=== PATIENT | male | born 1955 | race Caucasian/White ===

== ENCOUNTER 2016-08-01 10:34 | Emergency (ER) | payer BC ==
[2016-08-01 10:59] VITALS: BP 123/81
--- NOTE | 2016-08-01 11:16 | UC ---
Respiratory Complaint HPI - HPI Summary HPI Summary: 61 yo male with <48 hours of f/c, myalgias,runny nose and cough no cp or sob hx throat CA - History of Current Complaint Chief Complaint: UCGeneralIllness Stated Complaint: SINUS,ACHY,FEVER Time Seen by Provider: 08/01/16 11:03 Hx Obtained From: Patient Onset/Duration: Sudden Onset, Lasting Days Timing: Constant Severity Initially: Moderate Severity Currently: Moderate Pain Intensity: 6 Pain Scale Used: 0-10 Numeric Character: Cough: Nonproductive Aggravating Factors: Nothing Alleviating Factors: Nothing Associated Signs And Symptoms: Positive: Fever, Chills, Nasal Congestion Related History: Similar Episode/Dx as: - flu - Allergies/Home Medications Allergies/Adverse Reactions: Allergies Allergy/AdvReac Type Severity Reaction Status Date / Time No Known Allergies Allergy Verified 08/01/16 10:41 Home Medications: Home Medications Hydrochlorothiazide TAB* [Hydrodiuril TAB*] 12.5 mg PO DAILY 08/01/16 [History Confirmed 08/01/16] Metoprolol Tartrate TAB* [Lopressor TAB*] 50 mg PO DAILY 08/01/16 [History Confirmed 08/01/16] [id number] W/ APAP [Tylenol Cold & Flu Severe] 1 tab PO DAILY 08/01/16 [History Confirmed 08/01/16] PMH/Surg Hx/FS Hx/Imm Hx Previously Healthy: Yes Cardiovascular History Of: Reports: Hypertension - Surgical History Surgical History: Yes Surgery Procedure, Year, and Place: right knee sugery 09/28, right shoulder surgery - disclocation - 1982. GANGLION CYST REMOVED FROM [facility] 1960 - Family History Known Family History: Positive: Hypertension - Social History Alcohol Use: None Substance Use Type: None Smoking Status (MU): Never Smoked Tobacco - Immunization History Most Recent Influenza Vaccination: not this season Review of Systems Constitutional: Fever, Chills, Fatigue Skin: Negative Eyes: Negative ENT: Nasal Discharge Respiratory: Cough Cardiovascular: Negative Gastrointestinal: Negative Genitourinary: Negative Motor: Negative Neurovascular: Negative Musculoskeletal: Myalgia Neurological: Headache Psychological: Negative All Other Systems Reviewed And Are Negative: Yes Physical Exam Triage Information Reviewed: Yes Appearance: Well-Appearing, No Pain Distress, Well-Nourished Vital Signs: Initial Vital Signs Temp 99.0 F 08/01/16 10:37 Pulse 83 08/01/16 10:37 Resp 16 08/01/16 10:37 BP 123/81 08/01/16 10:37 Pulse Ox 100 08/01/16 10:37 Vital Signs Reviewed: Yes Eye Exam: Normal Eyes: Positive: Conjunctiva Clear ENT: Positive: Hearing grossly normal, Pharyngeal erythema, Nasal congestion, Nasal drainage, TMs normal. Negative: Tonsillar swelling, Tonsillar exudate, Trismus, Muffled/hoarse voice Neck exam: Normal Respiratory: Positive: Lungs clear, Normal breath sounds, No respiratory distress, No accessory muscle use Cardiovascular: Positive: RRR, No Murmur Abdomen Description: Positive: Nontender. Negative: CVA Tenderness (R), CVA Tenderness (L) Musculoskeletal: Positive: ROM Intact, No Edema Neurological: Positive: Alert Psychological Exam: Normal Skin Exam: Normal UC Diagnostic Evaluation - Laboratory O2 Sat by Pulse Oximetry: 100 - normal/not hypoxic Respiratory Course/Dx - Differential Dx/Diagnosis Provider Diagnoses: inluenza or influenza like illness Discharge - Discharge Plan Condition: Stable Disposition: HOME Prescriptions: Oseltamivir CAP* [Tamiflu CAP*] 75 mg PO BID #10 cap Patient Education Materials: Influenza (ED) Referrals: Ganesh Guzman MD [Primary Care Provider] - 4 Days Additional Instructions: rest fluids tylenol or advil recheck for new or worsening symptoms
== END 2016-08-01 11:19 | disposition home or self-care (01) ==
LOC: UCCORT 10:34
DX: J11.1 Influenza due to unidentified influenza virus with other respiratory manifestations (principal); I10 Essential (primary) hypertension
CPT/HCPCS: 99202; G0463

== ENCOUNTER 2016-12-25 11:07 | Emergency (ER) | payer BC ==
[2016-12-25 11:43] VITALS: BP 125/70
--- NOTE | 2016-12-25 13:03 | UC ---
Skin Complaint HPI - HPI Summary HPI Summary: "has been camping and found a tick on the base of his penis this morning. the area is red. " per meter maker. He was able to remove the tic w/o any problem. It was on for < 1 day. Denies fevers, chills and arthralgias and body aches - History of Current Complaint Chief Complaint: UCSkin Time Seen by Provider: 12/25/16 12:59 Stated Complaint: TICK BITE - Allergy/Home Medications Allergies/Adverse Reactions: Allergies Allergy/AdvReac Type Severity Reaction Status Date / Time No Known Allergies Allergy Verified 12/25/16 11:44 Review of Systems Constitutional: Negative Skin: Rash - does not look like bull's eye, small red area. Eyes: Negative ENT: Negative Respiratory: Negative Cardiovascular: Negative Gastrointestinal: Negative Genitourinary: Negative Motor: Negative Neurovascular: Negative Musculoskeletal: Negative Neurological: Negative Psychological: Negative All Other Systems Reviewed And Are Negative: Yes PMH/Surg Hx/FS Hx/Imm Hx Previously Healthy: Yes Cardiovascular History: Hypertension - Surgical History Surgical History: Yes Surgery Procedure, Year, and Place: right knee sugery 09/28,. right shoulder surgery - disclocation - 1982. GANGLION CYST REMOVED FROM [facility] 1960 - Family History Known Family History: Positive: Cardiac Disease, Hypertension, Diabetes - Social History Alcohol Use: None Substance Use Type: None Smoking Status (MU): Never Smoked Tobacco - Immunization History Most Recent Influenza Vaccination: not this season Physical Exam Triage Information Reviewed: Yes Appearance: Well-Appearing, No Pain Distress, Well-Nourished - very pleasant Vital Signs: Initial Vital Signs Temp 98.3 F 12/25/16 11:40 Pulse 65 12/25/16 11:40 Resp 14 12/25/16 11:40 BP 125/70 12/25/16 11:40 Pulse Ox 97 12/25/16 11:40 Eye Exam: Normal ENT Exam: Normal ENT: Positive: Pharynx normal Neck exam: Normal Neck: Positive: Supple, Nontender, No Lymphadenopathy Respiratory: Positive: Lungs clear, Normal breath sounds, No respiratory distress, No accessory muscle use Cardiovascular Exam: Normal Cardiovascular: Positive: RRR, No Murmur, Pulses Normal, Brisk Capillary Refill Musculoskeletal Exam: Normal Neurological Exam: Normal Psychological Exam: Normal Skin: Positive: rashes - right proximal penis with 2-3 mm area of erythema with centraol opening. no sign of tic remaining. Course/Dx - Course Course Of Treatment: Tic bite < 1 day. treat with prophylactic dose of doxy 200mgs x 1 dose. Pt is very agreeable with this plan. - Differential Diagnoses - Skin Complaint Differential Diagnoses: Cellulitis, Contact Dermatitis, Other - tic bite - Diagnoses Provider Diagnoses: tic bite Discharge - Discharge Plan Condition: Stable Disposition: HOME Prescriptions: Doxycycline (Monohydrate) [Doxycycline Monohydrate] 200 mg PO ONCE #2 cap Patient Education Materials: Tick Bite (ED) Referrals: Ganesh Guzman MD [Primary Care Provider] - 3 Days Additional Instructions: Please make sure to nitify your provider with any fevers, chills or joint aches.
== END 2016-12-25 13:17 | disposition home or self-care (01) ==
LOC: UCCORT 11:07
DX: S30.862A Insect bite (nonvenomous) of penis, initial encounter (principal); W57.XXXA Bitten or stung by nonvenomous insect and other nonvenomous arthropods, initial encounter; Y92.9 Unspecified place or not applicable; I10 Essential (primary) hypertension
CPT/HCPCS: 99212; G0463

== ENCOUNTER 2018-07-18 12:59 | Emergency (ER) | payer BC ==
[2018-07-18 13:20] VITALS: BP 157/88
--- NOTE | 2018-07-18 13:28 | UC ---
UC General HPI - HPI Summary HPI Summary: 4 DAY HX BODYACHES WITH COUGH RUNNY NOSE HEADACHE AND LEFT EAR PAIN. + FATIGUE. + F/C. - History of Current Complaint Chief Complaint: UCRespiratory Stated Complaint: FEVER, BODY ACHES, EARS Time Seen by Provider: 07/18/18 13:21 Hx Obtained From: Patient Pain Intensity: 7 Associated Signs & Symptoms: Negative: Chest Pain, Diarrhea, SOB, Vomiting - Allergy/Home Medications Allergies/Adverse Reactions: Allergies Allergy/AdvReac Type Severity Reaction Status Date / Time No Known Allergies Allergy Verified 07/18/18 13:10 Home Medications: Home Medications Chlorphenir/Phenyleph/Aspirin [Reva-Avon Plus Cold 2-7.8-325 mg] 1 tab PO PRN 07/18/18 [History] Phenylephrine/Dm/Acetaminop/GG [Vicks Dayquil Severe Cold-Flu] 1 each PO PRN [History] PMH/Surg Hx/FS Hx/Imm Hx - Additional Past Medical History Additional PMH: 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 right shoulder surgery - disclocation - 1982. GANGLION CYST REMOVED FROM [facility] 1960 - Family History Known Family History: Positive: Cardiac Disease, Hypertension, Diabetes - Social History Alcohol Use: None Substance Use Type: None Smoking Status (MU): Never Smoked Tobacco - Immunization History Most Recent Influenza Vaccination: not this season Review of Systems All Other Systems Reviewed And Are Negative: Yes Constitutional: Positive: Fever, Chills, Fatigue Skin: Positive: Negative Eyes: Positive: Negative ENT: Positive: Ear Ache, Sinus Congestion Respiratory: Positive: Cough Cardiovascular: Positive: Negative Gastrointestinal: Positive: Negative Genitourinary: Positive: Negative Motor: Positive: Negative Neurovascular: Positive: Negative Musculoskeletal: Positive: Myalgia Neurological: Positive: Headache Psychological: Positive: Negative Physical Exam Triage Information Reviewed: Yes Appearance: Well-Appearing Vital Signs: Initial Vital Signs Temp 101.1 F 07/18/18 13:14 Pulse 87 07/18/18 13:14 Resp 18 07/18/18 13:14 BP 157/88 07/18/18 13:14 Pulse Ox 100 07/18/18 13:14 Vital Signs Reviewed: Yes Eyes: Positive: Conjunctiva Clear ENT: Positive: Pharynx normal, Nasal congestion, TMs normal - L, TM red - R, Other - NO AURICULAR ADENOPATHY OR MASTOID TENDERNESS. Negative: Nasal drainage , Sinus tenderness Neck: Positive: Supple, Nontender, No Lymphadenopathy Respiratory: Positive: Lungs clear, Normal breath sounds Cardiovascular: Positive: RRR, No Murmur Abdomen Description: Positive: Nontender, No Organomegaly, Soft Bowel Sounds: Positive: Present Musculoskeletal: Positive: ROM Intact Neurological: Positive: Alert Psychological: Positive: Age Appropriate Behavior Skin Exam: Other - fLUSHED BUT WARM/DRY Diagnostics - Laboratory Diagnostic Studies Completed/Ordered: RAPID FLU=NEGATIVE Course/Dx - Course Course Of Treatment: R OM ON EXAM PLUS S/S'S ARE C/W LOCAL INFLUNZA THUS ANETA. BEYOND WINDOW OF [place] FOR THAT. - Differential Dx - Multi-Symptom Differential Diagnoses: Other - INFLUENZA/VIRAL SYNDROM/OM - Diagnoses Provider Diagnosis: Otitis media, Influenza-like illness Discharge - Sign-Out/Discharge Documenting (check all that apply): Patient Departure All imaging exams completed and their final reports reviewed: No Studies - Discharge Plan Condition: Stable Disposition: HOME Prescriptions: Amoxicillin PO (*) [Amoxicillin 875 MG (*)] 875 mg PO BID 10 Days #20 tab Patient Education Materials: Influenza (ED), Ear Infection (ED) Referrals: Ganesh Guzman MD [Primary Care Provider] - 7 Days - Billing Disposition and Condition Condition: STABLE Disposition: Home - Attestation Statements Provider Attestation: I was available for consult. This patient was seen by the [facility]. The patient was not presented to, seen by, or examined by me. -Cate
[2018-07-18] MEDS ORDERED: Ibuprofen ADULT LIQ* 600 MG/30 ML UDC PO ONE (13:37)
[2018-07-18 13:42] LABS: Influenza A Molecular NEGATIVE (Negative); Influenza B Molecular NEGATIVE (Negative)
== END 2018-07-18 13:52 | disposition home or self-care (01) ==
LOC: UCCORT 12:59
DX: J11.1 Influenza due to unidentified influenza virus with other respiratory manifestations (principal); H66.91 Otitis media, unspecified, right ear; Z85.89 Personal history of malignant neoplasm of other organs and systems
CPT/HCPCS: 99212; A9270-GY; G0463